=== PATIENT | male | born 1955 | race Caucasian/White ===

== ENCOUNTER 2017-08-23 08:00 | Outpatient (CLI) | payer OTHER ==
[2017-08-23 18:24] LABS: BASOPHILS % (AUTO) 0.7 %; EOSINOPHILS # (AUTO) 0.2 10^3/uL (0.0-0.7); EOSINOPHILS % (AUTO) 3.2 %; HGB - HEMOGLOBIN 14.9 g/dL (14.0-18.0); LYMPHOCYTES # (AUTO) 1.7 10^3/uL (1.5-3.5); LYMPHOCYTES % (AUTO) 30.5 %; MEAN CORPUSCULAR HEMOGLOBIN 29.9 pg (27.0-31.0); MEAN CORPUSCULAR HGB CONC 32.8 g/dL (32.0-36.0); MEAN CORPUSCULAR VOLUME 91.1 fL (80.0-94.0); MEAN PLATELET VOLUME 7.9 fL (7.4-11.4); MONOCYTES # (AUTO) 0.4 10^3/uL (0.0-1.0); MONOCYTES % (AUTO) 7.9 %; NEUTROPHILS # (AUTO) 3.2 10^3/uL (1.5-6.6); NEUTROPHILS % (AUTO) 57.7 %; PLT - PLATELET COUNT 244 10^3/uL (130-450); RED BLOOD COUNT 4.99 10^6/uL (4.70-6.10); RED CELL DISTRIBUTION WIDTH 14.3 % (12.0-15.0); WHITE BLOOD COUNT 5.6 x10^3/uL (4.8-10.8)
[2017-08-23 19:02] LABS: ALBUMIN 3.6 g/dL (3.2-5.5); ALBUMIN/GLOBULIN RATIO 0.9 (1.0-2.2); BILIRUBIN,TOTAL 0.7 mg/dL (0.2-1.0); CALCIUM 9.6 mg/dL (8.5-10.3); CREATININE 1.1 mg/dL (0.6-1.2); TOTAL PROTEIN 7.6 g/dL (6.7-8.2)
[2017-08-24 13:02] LABS: ALPHA FETOPROTEIN TUMOR MARKER 4.5 ng/mL (<6.1)
[2017-08-25 14:37] LABS: HCV RNA QUANT RT PCR 20000000 IU/mL (NOT DETECTED)
[2017-08-27 03:03] LABS: HEPATITIS C VIRAL RNA GENOTYPE 3
== END 2017-08-23 08:01 | disposition home or self-care (01) ==
LOC: LAB.S 08:00
PROVIDERS: ATTEND Nurse Practitioner Family
DX: F10.20 Alcohol dependence, uncomplicated (principal); I10 Essential (primary) hypertension; B19.20 Unspecified viral hepatitis C without hepatic coma
CPT/HCPCS: 36415; 80053; 82105; 85025; 87522; 87902

== ENCOUNTER 2019-03-17 10:25 | Outpatient (CLI) | payer MEDICARE ==
[2019-03-17 10:52] LABS: BASOPHILS # (AUTO) 0.1 10^3/uL (0.0-0.1); BASOPHILS % (AUTO) 0.8 %; EOSINOPHILS # (AUTO) 0.2 10^3/uL (0.0-0.7); EOSINOPHILS % (AUTO) 2.3 %; HGB - HEMOGLOBIN 14.6 g/dL (14.0-18.0); LYMPHOCYTES # (AUTO) 2.8 10^3/uL (1.5-3.5); LYMPHOCYTES % (AUTO) 38.1 %; MEAN CORPUSCULAR HGB CONC 33.6 g/dL (32.0-36.0); MEAN CORPUSCULAR VOLUME 89.5 fL (80.0-94.0); MEAN PLATELET VOLUME 9.1 fL (7.4-11.4); MONOCYTES # (AUTO) 0.6 10^3/uL (0.0-1.0); MONOCYTES % (AUTO) 8.1 %; NEUTROPHILS # (AUTO) 3.7 10^3/uL (1.5-6.6); NEUTROPHILS % (AUTO) 50.4 %; PLT - PLATELET COUNT 312 10^3/uL (130-450); RED BLOOD COUNT 4.86 10^6/uL (4.70-6.10); RED CELL DISTRIBUTION WIDTH 13.3 % (12.0-15.0); WHITE BLOOD COUNT 7.3 x10^3/uL (4.8-10.8)
[2019-03-17 11:11] LABS: ALBUMIN 4.3 g/dL (3.2-5.5); ALBUMIN/GLOBULIN RATIO 1.1 (1.0-2.2); ALKALINE PHOSPHATASE 37 IU/L (42-121); ALT ALANINE AMINOTRANSFERASE 33 IU/L (10-60); AST ASPARTATE AMINOTRANSFERASE 30 IU/L (10-42); BILIRUBIN,TOTAL 0.6 mg/dL (0.2-1.0); BUN - BLOOD UREA NITROGEN 32 mg/dL (6-20); CALCIUM 9.4 mg/dL (8.5-10.3); CARBON DIOXIDE - CO2 28 mmol/L (21-32); CHLORIDE 99 mmol/L (101-111); CHOL/HDL RATIO 3.7 (<5.0); CHOLESTEROL 170 mg/dL; CREATININE 1.9 mg/dL (0.6-1.2); GFR - MDRD 36 (>89); GLUCOSE 99 mg/dL (70-100); HDL CHOLESTEROL 46 mg/dL; LDL CHOLESTEROL,CALCULATED 96 mg/dL; LDL/HDL RATIO 2.1 (<3.6); SODIUM 135 mmol/L (135-145); TOTAL PROTEIN 8.3 g/dL (6.7-8.2); VLDL CHOLESTEROL 28 mg/dL
== END 2019-03-17 10:26 | disposition home or self-care (01) ==
LOC: LAB 10:25
PROVIDERS: ATTEND Nurse Practitioner
DX: I73.9 Peripheral vascular disease, unspecified (principal); Z79.899 Other long term (current) drug therapy; I10 Essential (primary) hypertension; I25.10 Atherosclerotic heart disease of native coronary artery without angina pectoris; J45.909 Unspecified asthma, uncomplicated; B19.20 Unspecified viral hepatitis C without hepatic coma
CPT/HCPCS: 36415; 80053; 80061; 82105; 83721; 84443; 85025; 87522

== ENCOUNTER 2019-03-17 14:31 | Outpatient (CLI) | payer MEDICARE ==
--- NOTE | 2019-03-17 21:50 | Ultrasound Report ---
Reason: CLAUDICATION,INTERMITTENT Procedure Date: 03/17/2019 Accession Number: [id number] / [id number] Procedure: US - Duplex Ext Veins Bilateral CPT Code: Final Report FULL RESULT: EXAM: BILATERAL LOWER EXTREMITY VENOUS ULTRASOUND EXAM DATE: 03/17/2019 07:20 PM. CLINICAL HISTORY: Claudication, intermittent. Leg pain bilaterally. COMPARISON: None. TECHNIQUE: Real-time sonographic vascular imaging was performed by the frame feeder through the lower extremities utilizing both color-flow and Doppler spectral analysis. Multiple advertising sales representative static images were saved for review. FINDINGS: Right: Common Femoral Vein (CFV): Normal. CFV-GSV Junction: Normal. Profunda Femoral Vein (PFV): Normal. Femoral Vein (FV) Prox: Normal. Femoral Vein (FV) Mid: Normal. Femoral Vein (FV) Dist: Normal. Popliteal Vein: Normal. Posterior Tibial Veins: Normal. Peroneal Veins: Normal. Left: Common Femoral Vein (CFV): Normal. CFV-GSV Junction: Normal. Profunda Femoral Vein (PFV): Normal. Femoral Vein (FV) Prox: Normal. Femoral Vein (FV) Mid: Normal. Femoral Vein (FV) Dist: Normal. Popliteal Vein: Normal. Posterior Tibial Veins: Normal. Peroneal Veins: Normal. Other: None. IMPRESSION: No evidence for deep venous thrombosis bilaterally. RADIA
--- NOTE | 2019-03-18 11:59 | Ultrasound Report ---
Reason: CLAUDICATION,INTERMITTENT Procedure Date: 03/17/2019 Accession Number: [id number] / [id number] Procedure: US - Duplex Lwr Ext Arterial Bilat CPT Code: Addended Final Report FULL RESULT: EXAM: Bilateral Lower Extremity Arterial Doppler Ultrasound EXAM DATE: 03/17/2019 08:19 PM. CLINICAL HISTORY: Claudication, intermittent. History of coronary arterial disease with 3 prior myocardial infarctions. COMPARISON: None. TECHNIQUE: Real-time sonographic vascular imaging was performed by the costume seamstress, utilizing color-flow, Doppler flow, and spectral analysis. Multiple patient service representative static images were saved for review. FINDINGS: Prominent scattered atherosclerotic plaque with distal shadowing involving the right and left lower extremity arteries. Spectral Doppler imaging of the proximal and mid left SFA demonstrates monophasic waveforms with peak systolic velocity of approximately 5 cm/s. Right Lower Extremity: SENIOR LEAD JAVA DEVELOPER: PSV 67 cm/sec, monophasic waveform. PSFA: PSV 58 cm/sec, monophasic waveform. MSFA: PSV 72 cm/sec, monophasic waveform. DSFA: PSV 26 cm/sec, monophasic waveform. PFA: PSV 70 cm/sec, monophasic waveform. POP: PSV 22 cm/sec, monophasic waveform. DAYANNA: PSV 21 cm/sec, monophasic waveform. EXTRUSION UTILITY WORKER: PSV 11 cm/sec, monophasic waveform. CAMILO: PSV 9 cm/sec, monophasic waveform. DPA: PSV 16 cm/sec, monophasic waveform. Left Lower Extremity: SENIOR LEAD JAVA DEVELOPER: PSV 52 cm/sec, monophasic waveform. PSFA: Stenosed. MSFA: Stenosed. DSFA: Stenosed. PFA: PSV 87 cm/sec, monophasic waveform. POP: PSV 19 cm/sec, monophasic waveform. DAYANNA: PSV 28 cm/sec, monophasic waveform. EXTRUSION UTILITY WORKER: PSV 13 cm/sec, monophasic waveform. CAMILO: PSV 6 cm/sec, monophasic waveform. DPA: PSV 4 cm/sec, monophasic waveform. IMPRESSION: 1. High-grade stenosis proximal and mid left superficial femoral artery. Consider CT angiography to further assess. 2. No hemodynamically significant arterial stenosis within the right lower extremity. 3. Prominent atherosclerotic arterial calcifications. RAD[facility] The call report notification system was initiated by Dr. Josh Umaña at 11:52 AM on 03/18/2019. ADDENDUM: 03/18/19 12:22 The above call report findings were discussed with Diana Norton PA-C by Dr. Josh Umaña at 12:22 PM on 03/18/2019. Consider CTA abdominal aorta with bilateral lower extremity runoff to further assess left SFA stenosis and exclude more proximal stenosis.
== END 2019-03-17 14:32 | disposition home or self-care (01) ==
LOC: DI 14:31
PROVIDERS: ATTEND Nurse Practitioner
DX: I73.9 Peripheral vascular disease, unspecified (principal); I25.10 Atherosclerotic heart disease of native coronary artery without angina pectoris; I10 Essential (primary) hypertension; J45.909 Unspecified asthma, uncomplicated; B19.20 Unspecified viral hepatitis C without hepatic coma; Z79.899 Other long term (current) drug therapy
CPT/HCPCS: 36415; 80053; 80061; 82105; 84443; 85025; 87522; 93925; 93970

== ENCOUNTER 2019-03-27 09:44 | Outpatient (CLI) | payer MEDICARE ==
[2019-03-27] MEDS ORDERED: IOVERSOL 320 100 ML VIAL IVP ONE ×2 (10:21→13:16)
--- NOTE | 2019-03-27 15:31 | CT Report ---
Reason: PVD WITH CLAUDICATION Procedure Date: 03/27/2019 Accession Number: [id number] / [id number] Procedure: CT - ANGIO LOWER EXT W/WO - B/L CPT Code: Final Report FULL RESULT: EXAM: CT ANGIOGRAM ABDOMEN AND PELVIS, WITH BILATERAL LOWER EXTREMITY ARTERY RUNOFF EXAM DATE: 03/27/2019 11:24 AM CLINICAL HISTORY: PVD with claudication. COMPARISON: None. TECHNIQUE: Routine helical imaging was performed through the abdomen, pelvis and bilateral lower extremities in arterial phase. IV Contrast: OPTI 320 125ML. Reconstructions: Coronal, sagittal, and 3D MIP reconstructions were performed. In accordance with CT protocol optimization, one or more of the following dose reduction techniques were utilized for this exam: automated exposure control, adjustment of mA and/or KV based on patient size, or use of iterative reconstructive technique. FINDINGS: Vascular: There is severe atherosclerotic disease with both soft and calcific plaque throughout the visualized abdomen, pelvis, and lower extremities. The celiac axis remains patent with conventional branching anatomy. The SMA demonstrates approximately 50% proximal stenosis with poststenotic dilation but remains patent. The inferior mesenteric artery remains patent. The duplicated right renal arteries are patent with expected nephrogram. The left kidney demonstrates heterogeneous partial nephrogram due to ostial stenosis of the single left renal artery which demonstrates early branching and occlusion of several main branches. The aorta itself is not aneurysmal but demonstrates circumferential atherosclerotic disease, combination of hard and soft plaque. The right common iliac artery demonstrates severe stenosis of greater than 75% with a combination of soft and calcific atherosclerosis. The right external iliac artery demonstrates approximately 2.9 cm segmental stenosis proximally, approximately 75% stenosis. There is focal approximately 80% stenosis at the origin of the right profunda femoris which remains patent. The right SFA is diffusely atherosclerotic with focal approximately 70-80% stenosis distally at the level of the canal, calcific and hypoechoic eccentric stenosis. The origins of the anterior and posterior tibial arteries as well as peroneal artery of the below the knee right lower extremity remain patent with diffuse atherosclerotic disease. The contrast bolus is lost usp through the calf, potentially due to above inflow disease. The left common iliac arteries circumferentially severely atherosclerotic with diffuse approximately 50% stenosis throughout its length which culminates in severe stenosis of the proximal left internal iliac artery which remains otherwise patent and represents the major collateral pathway reconstituting the left profunda femoris which reconstitutes the SFA distally above the knee. The left external iliac artery is chronically occluded. The left common femoral artery while near occluded receives a small amount of minor collateral flow with approximately 10% of the lumen residually opacified, potential recanalization access site. The proximal and mid SFA are totally occluded with reconstitution just above the knee. The diffusely diseased anterior and posterior tibial arteries and peroneal artery are well visualized to the level of the midcalf where the contrast bolus is lost. Inferior vena cava unremarkable as seen. Abdomen: Lung bases, abdominal solid organs, bowel unremarkable for arterial phase enhancement excepting the left kidney mentioned above which is not adequately perfused. Abdominal contents otherwise normal. Pelvis: Pelvic organs, bowel, and bladder unremarkable for arterial phase enhancement. Pelvic contents otherwise normal. Extremities: Lower extremity bones and soft tissues unremarkable. IMPRESSION: 1. Severe abdominal pelvic visceral atherosclerotic disease affecting perfusion of the left kidney with delayed nephrogram. 2. Severe focal stenosis of the right common iliac artery, right inflow disease which is further exacerbated by segmental approximately 75% stenosis of the right external iliac artery. 3. Total occlusion of the left external iliac artery with perfusion to the left lower extremity via gluteal collateral vasculature, profunda femoris with reconstitution just above the knee. The call report notification system was initiated by Dr. Aden Lopez at 03:19 PM on 03/27/2019. The above call report findings were discussed with Donna Gutiérrez by Dr. Aden Lopez at 03:22 PM on 03/27/2019.
== END 2019-03-27 09:45 | disposition home or self-care (01) ==
LOC: DI 09:44
PROVIDERS: ATTEND Nurse Practitioner
DX: I73.9 Peripheral vascular disease, unspecified (principal); I70.0 Atherosclerosis of aorta; I70.8 Atherosclerosis of other arteries; I74.5 Embolism and thrombosis of iliac artery
CPT/HCPCS: 73706

== ENCOUNTER 2019-03-27 09:46 | Outpatient (CLI) | payer MEDICARE ==
[2019-03-28] MEDS ORDERED: REGADENOSON 0.4 MG/5 ML SYRINGE IVP ONE (13:00)
--- NOTE | 2019-03-28 17:02 | Nuclear Medicine Report ---
Reason: CAD Procedure Date: 03/28/2019 Accession Number: [id number] / [id number] Procedure: NM - Myocardial Perfusion STR/RST CPT Code: Final Report FULL RESULT: EXAM: SINGLE-ISOTOPE PHARMACOLOGICAL STRESS TEST WITH REGADENOSON. SINGLE-ISOTOPE AND TWO-DAY REST/STRESS MYOCARDIAL PERFUSION SCANS WITH TOMOGRAPHIC IMAGING, QUANTITATIVE ANALYSIS, WALL MOTION ANALYSIS AND CALCULATION OF EJECTION FRACTION. EXAM DATE: 03/28/2019 03:05 PM. CLINICAL HISTORY: Coronary artery disease. COMPARISON: None available. TECHNIQUE: A pharmacological stress was performed with the infusion of 0.4 mg regadenoson per protocol. According to protocol, 10.4 mCi of Tc-99m sestamibi was injected for stress myocardial perfusion scan. Motion correction was applied when appropriate. The following day after the intravenous administration of 26.2 mCi of Tc-99m sestamibi, a rest myocardial perfusion scan was done with tomography. Motion correction was applied when appropriate. Gated tomographic images were obtained for wall motion analysis and computation of left ventricular ejection fraction. FINDINGS: Images show a moderate severity fixed defect involving the apex and distal inferior and inferoseptal miller. No convincing significant reversible defects. Summed stress score 10 Summed rest score 8 Summed difference score 2 Wall motion analysis demonstrates septal hypokinesis. The left ventricular end-diastolic volume is 48 cc. The left ventricular end-systolic volume is 11 cc. The left ventricular ejection fraction is calculated to be 78%. IMPRESSION: 1. Moderate severity fixed defect involving the apex and distal inferior and inferoseptal miller. No convincing significant reversible perfusion defects on visual analysis. 2. Left ventricular ejection fraction of 78%. 3. Septal hypokinesis. 4. Normal left ventricular cavity size, no change with stress. Please correlate findings with stress ECG tracings and procedure notes. RADIA
--- NOTE | 2019-03-29 08:58 | CARDIAC PROCEDURE NOTE ---
DATE OF SERVICE: 03/28/2019 Physician: Lor Low MD, LOCATED WITHIN [facility] INDICATION 1. CAD. 2. Chest pain. 3. Abnormal EKG. CARDIAC RISK FACTORS 1. Hypertension. 2. Smoking history. 3. Male gender. 4. Advanced age. 5. The patient has known CAD and describes "3 prior MIs." DESCRIPTION OF PROCEDURE: After signing informed consent, patient underwent a Lexiscan pharmaceutical stress test with nuclear myocardial perfusion imaging. (The resting image was done the day before and the pharmaceutical stress portion plus imaging, needed to be postponed because he drank coffee yesterday and caffeine is a natural antidote to Lexiscan). RESTING HEART RATE: 78. PEAK HEART RATE: 110. RESTING BLOOD PRESSURE: 171/112. PEAK BLOOD PRESSURE: 210/99. Lexiscan was infused per protocol. Patient developed brief flushing and nausea and had mild shortness of breath. The symptoms abated after 3 minutes. Patient was given p.o. caffeine for reversal of any further symptoms. He had no chest pain throughout the test. Oxygen saturation was 95-98% on room air throughout the test. RESTING EKG: Normal sinus rhythm, rate 77, left atrial enlargement and right atrial enlargement, QS waves are present in V1 and V2, horizontal ST depressions of 2 mm with biphasic T waves are present in leads II, III, and aVF, as well as V3 through V6. EKG AT [facility]: Unchanged ST and T-wave abnormalities in same diffuse leads. IMPRESSION AND DIAGNOSES 1. Abnormal resting EKG. 2. No chest pain develops with pharmaceutical stress agent. 3. No new EKG changes develop with pharmaceutical stress. 4. Nuclear images reported separately. cc: DIVYA Lyn NP-C TD: 03/28/2019 18:22 [place]
== END 2019-03-27 09:47 | disposition home or self-care (01) ==
LOC: DI 09:46
PROVIDERS: ATTEND Nurse Practitioner
DX: I25.119 Atherosclerotic heart disease of native coronary artery with unspecified angina pectoris (principal); I10 Essential (primary) hypertension; J45.909 Unspecified asthma, uncomplicated; I25.2 Old myocardial infarction; R94.31 Abnormal electrocardiogram [ECG] [EKG]; Z87.891 Personal history of nicotine dependence
CPT/HCPCS: 78452; 93017

== ENCOUNTER 2019-03-27 11:19 | Emergency (ER) | payer MEDICARE ==
[2019-03-27 11:45] LABS: BASOPHILS % (AUTO) 0.5 %; EOSINOPHILS # (AUTO) 0.1 10^3/uL (0.0-0.7); EOSINOPHILS % (AUTO) 0.7 %; HGB - HEMOGLOBIN 14.4 g/dL (14.0-18.0); LYMPHOCYTES # (AUTO) 2.1 10^3/uL (1.5-3.5); LYMPHOCYTES % (AUTO) 28.4 %; MEAN CORPUSCULAR HEMOGLOBIN 29.5 pg (27.0-31.0); MEAN CORPUSCULAR HGB CONC 32.7 g/dL (32.0-36.0); MEAN CORPUSCULAR VOLUME 90.2 fL (80.0-94.0); MEAN PLATELET VOLUME 9.3 fL (7.4-11.4); MONOCYTES # (AUTO) 0.6 10^3/uL (0.0-1.0); MONOCYTES % (AUTO) 8.2 %; NEUTROPHILS # (AUTO) 4.7 10^3/uL (1.5-6.6); NEUTROPHILS % (AUTO) 61.9 %; PLT - PLATELET COUNT 239 10^3/uL (130-450); RED BLOOD COUNT 4.88 10^6/uL (4.70-6.10); RED CELL DISTRIBUTION WIDTH 13.3 % (12.0-15.0); WHITE BLOOD COUNT 7.5 x10^3/uL (4.8-10.8)
[2019-03-27 12:00] LABS: ALBUMIN 3.9 g/dL (3.2-5.5); ALBUMIN/GLOBULIN RATIO 1.1 (1.0-2.2); CALCIUM 9.1 mg/dL (8.5-10.3); CREATININE 1.5 mg/dL (0.6-1.2); TOTAL PROTEIN 7.4 g/dL (6.7-8.2)
--- NOTE | 2019-03-27 12:01 | XRAY Report ---
Reason: Chest Pain Procedure Date: 03/27/2019 Accession Number: [id number] / [id number] Procedure: XR - Chest 1 View X-Ray CPT Code: 94574 Final Report FULL RESULT: EXAM: CHEST RADIOGRAPHY EXAM DATE: 03/27/2019 11:31 AM. CLINICAL HISTORY: Chest Pain. COMPARISON: None. TECHNIQUE: 1 view. FINDINGS: Lungs/Pleura: No focal opacities evident. No pleural effusion. No pneumothorax. Mediastinum: Within exam limitations, the cardiomediastinal contour is normal. Other: None. IMPRESSION: No evidence for acute cardiopulmonary process. RADIA
[2019-03-27] MEDS ORDERED: SODIUM CHLORIDE 0.9% 1,000 ML IV ONE (12:05)
--- NOTE | 2019-03-27 12:24 | ED Physician Documentation ---
History of Present Illness - Stated complaint Stated Complaint: ABNORMAL EKG - Chief complaint Chief Complaint: General - History obtained from History obtained from: Patient - History of Present Illness Timing: Today Pain level max: 0 Pain level now: 0 - Additonal information Additional information: 64-year-old male presents to the emergency department after being referred by his primary care provider for an abnormal resting EKG. He states he has had 3 heart attacks in the past. He is currently asymptomatic. Has not had any chest pain, shortness of breath. No nausea or vomiting. He is scheduled for cardiac stress test this afternoon. His heart attacks were in [place]. Does not have a fly rail operator here yet. Review of Systems Ten Systems: 10 systems reviewed and negative Constitutional: denies: Fever, Chills Nose: denies: Rhinorrhea / runny nose, Congestion GI: denies: Vomiting, Diarrhea Skin: denies: Rash Musculoskeletal: denies: Neck pain, Back pain Neurologic: denies: Headache PD PAST MEDICAL HISTORY - Past Medical History Past Medical History: Yes Cardiovascular: Hypertension, Coronary artery disease - Allergies Allergies/Adverse Reactions: Allergies Allergy/AdvReac Type Severity Reaction Status Date / Time codeine Allergy Itching Verified 03/27/19 11:24 - Living Situation Living Arrangement: reports: At home - Social History Does the pt smoke?: Yes Does the pt have substance abuse?: No - Family History Family history: reports: Non contributory PD ED PE NORMAL - Vitals Vital signs reviewed: Yes - General General: Alert and oriented X 3, No acute distress, Other (Thin male) - HEENT HEENT: Moist mucous membranes - Neck Neck: Supple, no meningeal sign - Cardiac Cardiac: RRR, No murmur, Strong equal pulses - Respiratory Respiratory: No respiratory distress, Clear bilaterally - Abdomen Abdomen: Soft, Non tender, Non distended - Derm Derm: Warm and dry, No rash - Extremities Extremities: No edema - Neuro Neuro: Alert and oriented X 3 - Psych Psych: Normal mood, Normal affect Results - Vitals Vitals: Vital Signs - 24 hr 03/27/19 03/27/19 11:24 12:30 Temperature 36.9 C Heart Rate 77 69 Respiratory 18 15 Rate Blood Pressure 175/88 H 167/77 H O2 Saturation 97 97 Oxygen O2 Source Room air - EKG (time done) 1134 Rate: Rate (enter#) (68) Rhythm: NSR [place]: Normal Intervals: Normal GA QRS: Normal Ischemia: Normal ST segments, ST depression (minimal ST depression II, III, aVF) - Labs Labs: Laboratory Tests 03/27/19 03/27/19 03/27/19 11:42 11:42 11:42 WBC 7.5 RBC 4.88 Hgb 14.4 Hct 44.0 MCV 90.2 MCH 29.5 MCHC 32.7 RDW 13.3 Plt Count 239 MPV 9.3 Neut # (Auto) 4.7 Lymph # (Auto) 2.1 Weber # (Auto) 0.6 Eos # (Auto) 0.1 Baso # (Auto) 0.0 Absolute Nucleated RBC 0.00 Nucleated RBC % 0.0 Sodium 129 L Potassium 4.6 Chloride 91 L Carbon Dioxide 24 Anion Gap 14.0 H BUN 26 H Creatinine 1.5 H Estimated GFR (MDRD) 47 L Glucose 91 Calcium 9.1 Total Bilirubin 1.0 AST 35 ALT 29 Alkaline Phosphatase 38 L Troponin I High Sens 3.6 Total Protein 7.4 Albumin 3.9 Globulin 3.5 Albumin/Globulin Ratio 1.1 Lipase 43 - Rads (name of study) cxr Radiology: Prelim report reviewed, EMP read contemporaneously, See rad report (No acute disease) PD MEDICAL DECISION MAKING - ED course Complexity details: reviewed results, re-evaluated patient, considered differential (No ST elevation [place], no aortic dissection, no PE, no tension pneumothorax, no aortic aneurysm), d/w patient ED course: Patient with an asymptomatic slightly abnormal resting EKG today with his doctor. He is asymptomatic here. Minimal ST depression. No evidence of acute ischemia. Negative high-sensitivity troponin. We will discharge him to his cardiac stress test. Patient counseled regarding signs and symptoms for which I believe and urgent re-evaluation would be necessary. Patient with good understanding of and agreement to plan and is comfortable going home at this time This document was made in part using voice recognition software. While efforts are made to proofread this document, sound alike and grammatical errors may occur. Departure - Departure Disposition: 01 Home, Self Care Clinical Impression: Abnormal resting ECG findings Condition: Good Instructions: ED Screening Exam Medical Nonurgent Follow-Up: Donna Gutiérrez ARNP, TUB MENDER-C [Primary Care Provider] - Within 1 week Comments: You are to go directly to your cardiac stress test after being discharged from the emergency department. Return if you worsen. Follow-up with your doctor for further care. Discharge Date/Time: 03/27/19 13:01
[2019-03-27 12:33] VITALS: BP 167/77
== END 2019-03-27 13:01 | disposition home or self-care (01) ==
LOC: ED 11:19
DX: R94.31 Abnormal electrocardiogram [ECG] [EKG] (principal); I10 Essential (primary) hypertension; I25.2 Old myocardial infarction; I25.119 Atherosclerotic heart disease of native coronary artery with unspecified angina pectoris; J45.909 Unspecified asthma, uncomplicated; I73.9 Peripheral vascular disease, unspecified; I70.0 Atherosclerosis of aorta; I70.8 Atherosclerosis of other arteries; I74.5 Embolism and thrombosis of iliac artery; Z87.891 Personal history of nicotine dependence
CPT/HCPCS: 36415; 71045; 73706; 78452; 80053; 83690; 84484; 85025; 93005; 93017; A9500; Q9967; 99283; 99284

== ENCOUNTER 2019-11-21 13:36 | Outpatient (CLI) | payer MEDICARE | END 2019-11-21 13:37 | disposition critical access hospital (66) | LOC: EMS 13:36 | PROVIDERS: ATTEND Surgery | DX: R53.1 Weakness (principal); R42 Dizziness and giddiness; R55 Syncope and collapse | CPT/HCPCS: A0425; A0427 ==

== ENCOUNTER 2019-11-21 13:43 | Emergency (ER) | payer MEDICARE ==
[2019-11-21 14:25] LABS: BASOPHILS % (AUTO) 0.6 %; EOSINOPHILS # (AUTO) 0.1 10^3/uL (0.0-0.7); EOSINOPHILS % (AUTO) 2.1 %; HGB - HEMOGLOBIN 9.9 g/dL (14.0-18.0); LYMPHOCYTES # (AUTO) 2.3 10^3/uL (1.5-3.5); LYMPHOCYTES % (AUTO) 34.2 %; MEAN CORPUSCULAR HEMOGLOBIN 29.7 pg (27.0-31.0); MEAN CORPUSCULAR HGB CONC 32.4 g/dL (32.0-36.0); MEAN CORPUSCULAR VOLUME 91.9 fL (80.0-94.0); MEAN PLATELET VOLUME 9.1 fL (7.4-11.4); MONOCYTES # (AUTO) 0.6 10^3/uL (0.0-1.0); MONOCYTES % (AUTO) 8.5 %; NEUTROPHILS # (AUTO) 3.7 10^3/uL (1.5-6.6); NEUTROPHILS % (AUTO) 54.3 %; PLT - PLATELET COUNT 306 10^3/uL (130-450); RED BLOOD COUNT 3.33 10^6/uL (4.70-6.10); RED CELL DISTRIBUTION WIDTH 14.8 % (12.0-15.0); WHITE BLOOD COUNT 6.8 x10^3/uL (4.8-10.8)
--- NOTE | 2019-11-21 14:29 | XRAY Report ---
PROCEDURE: Chest 1 View X-Ray INDICATIONS: Chest Pain TECHNIQUE: One view of the chest was acquired. COMPARISON: 03/27/2019 FINDINGS: Surgical changes and devices: None. Lungs and pleura: No pleural effusions or pneumothorax. Stable appearance of minimal blunting of the left costophrenic angle likely related to pleural thickening or scarring. Lungs are otherwise clear. Mediastinum: Mediastinal contours appear normal. Heart size is normal. Bones and chest wall: No suspicious bony lesions. Overlying soft tissues appear unremarkable. IMPRESSION: Stable examination of the chest without acute cardiopulmonary abnormalities. No abnormalities identif ied to explain patient's chest pain. Reviewed by: Smith Orta MD on 11/21/2019 2:27 PM PDT Approved by: Smith Orta MD on 11/21/2019 2:27 PM PDT Station ID: [id number]
[2019-11-21 14:38] LABS: ALBUMIN 3.5 g/dL (3.2-5.5); ALBUMIN/GLOBULIN RATIO 0.9 (1.0-2.2); BILIRUBIN,TOTAL 0.4 mg/dL (0.2-1.0); CALCIUM 8.8 mg/dL (8.5-10.3); CREATININE 1.4 mg/dL (0.6-1.2); TOTAL PROTEIN 7.2 g/dL (6.7-8.2)
--- NOTE | 2019-11-21 14:38 | ED Physician Documentation ---
History of Present Illness - Stated complaint Stated Complaint: NEAR SYNCOPE - Chief complaint Chief Complaint: Neuro - History obtained from History obtained from: Patient, EMS - History of Present Illness Timing: Prior to arrival - Additonal information Additional information: 64-year-old male brought into the emergency department for evaluation of near syncope noted by his home health care care nurse this afternoon. The EMS report indicates the patient had near syncope but did not faint. On scene he was normotensive and his blood sugar was 111. Patient states that he does not remember if he fainted or not. At this time patient denies that he has any chest pain, vertigo, dizziness, dyspnea, or leg swelling.` He denies abdominal pain, back pain nausea vomiting diarrhea or dysuria This gentleman has a cardiac history that includes recent stenting at [facility]. He also recently underwent vascular intervention for acute arterial occlusion in his lower legs. He had that intervention of July 2019. He reports he saw vascular in follow-up and was told that he has 50% occlusion to the left leg and 60% occlusion to the right leg however he denies any leg pain or swelling at present pmh: htn, cad, copd soc: + daily tobacco meds: Amlodipine 10 mg qd asa 81 mg qd lipitor 80 mg qd metoprolol 25 mg bid ticagprelor 90 mg bid nitro prn ipratropium QD Review of Systems Constitutional: denies: Fever, Chills Eyes: denies: Loss of vision, Decreased vision Ears: denies: Loss of hearing, Tinnitus/ringing Nose: denies: Rhinorrhea / runny nose, Congestion, Epistaxis, Sinus pressure / pain Throat: denies: Dental pain / toothache, Oral lesions / sores, Sore throat Cardiac: denies: Chest pain / pressure, Palpitations, Pedal edema, Calf pain Respiratory: denies: Dyspnea, Cough, Hemoptysis, Wheezing GI: denies: Abdominal Pain, Abdominal Swelling, Nausea, Vomiting : denies: Dysuria, Frequency, Hesitancy, Unable to Void Skin: denies: Rash, Lesions Musculoskeletal: denies: Neck pain, Back pain, Joint pain, Extremity swelling, Joint swelling Neurologic: reports: Near syncope. denies: Generalized weakness, Focal weakness, Numbness, Difficulty speaking, Syncope, Seizure, Confused, Altered mental status, Headache, Head injury Psychiatric: denies: Depressed, Suicidal, Hallucinations, Delusions PD PAST MEDICAL HISTORY - Past Medical History Cardiovascular: Hypertension, Coronary artery disease - Past Surgical History Past Surgical History: No - Allergies Allergies/Adverse Reactions: Allergies Allergy/AdvReac Type Severity Reaction Status Date / Time codeine Allergy Itching Verified 11/21/19 13:51 - Social History Does the pt smoke?: Yes Smoking Status: Current every day smoker Does the pt drink ETOH?: No Does the pt have substance abuse?: No - Immunizations Immunizations: TDAP >10years/unknown PD ED PE EXPANDED - General General: Alert, No acute distress, Well developed/nourished - HEENT HEENT: PERRL - Neck Neck: Supple w/out meningeal sx. No: Adenopathy - Cardiac Cardiac: Regular Rate, Murmur Present, Femoral strong equal, Pedal strong equal, Cap refill < 2 sec. No: Abnormal Rate - Respiratory Respiratory: Clear to ausultation wilner. No: Distress, Labored - Abdomen Abdomen: Normal Bowel sounds. No: Tender to palpation - Extremities Extremities: Normal, Other (Edema of the lower legs. 2+ PEDAL PULSES BILATERALLY) - Neuro Neuro: Alert and Oriented X 3, CNII-XII intact, Normal gait, Normal finger nose, Normal speech - GCS Eye Opening: Spontaneous Motor: Obeys Commands Verbal: Oriented Total: 15 Results - Vitals Vitals: Vital Signs - 24 hr 11/21/19 11/21/19 11/21/19 13:43 14:45 15:02 Temperature 36.4 C L Heart Rate 84 80 Heart Rate [ 83 Sitting] Heart Rate [ 91 Standing] Heart Rate [ 76 Supine] Respiratory 16 18 Rate Blood Pressure 138/73 H 123/75 Blood Pressure 116/74 [Sitting] Blood Pressure 86/74 L [Standing] Blood Pressure 117/69 [Supine] O2 Saturation 99 100 11/21/19 16:37 Temperature Heart Rate Heart Rate [ 90 Sitting] Heart Rate [ 93 Standing] Heart Rate [ 89 Supine] Respiratory Rate Blood Pressure Blood Pressure 114/77 [Sitting] Blood Pressure 109/69 [Standing] Blood Pressure 127/91 H [Supine] O2 Saturation Oxygen O2 Source Room air - EKG (time done) 1406 Rate: Rate (enter#) (76) Rhythm: NSR [place]: Normal Intervals: Normal [place] QRS: Normal Ischemia: Normal ST segments, Non specific changes Compare to prior EKG: Changed from prior EKG (new change V1-V2), Old EKG unavailable - Labs Labs: Laboratory Tests 11/21/19 11/21/19 11/21/19 14:18 14:18 14:18 WBC 6.8 RBC 3.33 L Hgb 9.9 L Hct 30.6 L MCV 91.9 MCH 29.7 MCHC 32.4 RDW 14.8 Plt Count 306 MPV 9.1 Neut # (Auto) 3.7 Lymph # (Auto) 2.3 [place] # (Auto) 0.6 Eos # (Auto) 0.1 Baso # (Auto) 0.0 Absolute Nucleated RBC 0.00 Nucleated RBC % 0.0 Sodium 135 Potassium 3.8 Chloride 101 Carbon Dioxide 21 Anion Gap 13.0 BUN 24 H Creatinine 1.4 H Estimated GFR (MDRD) 51 L Glucose 93 Calcium 8.8 Total Bilirubin 0.4 AST 45 H ALT 32 Alkaline Phosphatase 41 L Troponin I High Sens 7.2 Total Protein 7.2 Albumin 3.5 Globulin 3.7 Albumin/Globulin Ratio 0.9 L Lipase 68 H TSH 11/21/19 14:18 WBC RBC Hgb Hct MCV MCH MCHC RDW Plt Count MPV Neut # (Auto) Lymph # (Auto) [place] # (Auto) Eos # (Auto) Baso # (Auto) Absolute Nucleated RBC Nucleated RBC % Sodium Potassium Chloride Carbon Dioxide Anion Gap BUN Creatinine Estimated GFR (MDRD) Glucose Calcium Total Bilirubin AST ALT Alkaline Phosphatase Troponin I High Sens Total Protein Albumin Globulin Albumin/Globulin Ratio Lipase TSH 0.59 - Rads (name of study) cxr Radiology: Final report received (Stable examination of the chest without acute cardiopulmonary abnormalities.) PD MEDICAL DECISION MAKING - ED course Complexity details: reviewed old records, reviewed results, re-evaluated patient, considered differential, d/w patient ED course: 64-year-old male presents to the emergency department with a near syncopal event this afternoon when being attended by his home health nurse. He does have a history of significant coronary artery disease as well as recently being seen at [place] and having vascular intervention for ischemic flow to his legs. His EKG is sinus without ischemic changes. His high-sensitivity troponin is negative. We did do orthostatic blood pressures and noted that he went from a systolic blood pressure of about 116 laying and sitting to a systolic blood pressure of 86 when standing. We did challenge him with 1 L of IV fluids in the emergency department. Pitted and his blood pressure changed from 1 16-1 07 sitting to standing. He was given a second liter of IV fluids. At this time patient feels that he feels better he denies any dizziness and his gait has been stable and unassisted in the ER. I will recommend close follow-up with his primary care doctor. I suspect that he may have been mildly dehydrated as his presenting creatinine was 1.4. Emergent return precautions discussed Departure - Departure Disposition: Home, Self Care Clinical Impression: Near syncope, Postural dizziness Condition: Stable Record reviewed to determine appropriate education?: Yes Instructions: ED Near Syncope Vasovagal Follow-Up: Donna Gutiérrez ARNP, [employer] SET UP OPERATOR-C [Primary Care Provider] - Comments: Rest I think that the near fainting episode may have been a little bit of dehydration. Your vital signs have improved here in the emergency department with some IV fluids. Your EKG, chest x-ray and labs otherwise did not show any abnormalities with the exception of a little bit of anemia. I would like you to schedule very close follow-up with your primary care doctor for further evaluation. If you develop chest pain have any fainting episodes or feel that your symptoms have returned please return to the ER
[2019-11-21] MEDS ORDERED: SODIUM CHLORIDE 0.9% 1,000 ML IV STA ×2 (15:16→16:43)
[2019-11-21 18:00] VITALS: BP 130/86
== END 2019-11-21 17:58 | disposition home or self-care (01) ==
LOC: EDBD → EDUNIT# → ED 13:43
DX: R55 Syncope and collapse (principal); R42 Dizziness and giddiness; I10 Essential (primary) hypertension; I25.10 Atherosclerotic heart disease of native coronary artery without angina pectoris; J44.9 Chronic obstructive pulmonary disease, unspecified; Z79.82 Long term (current) use of aspirin; F17.200 Nicotine dependence, unspecified, uncomplicated
CPT/HCPCS: 36415; 71045; 80053; 83690; 84443; 84484; 85025; 93005; 96360; 96361; 99283

== ENCOUNTER 2020-09-18 09:54 | Outpatient (CLI) | payer MEDICARE ==
[2020-09-18 10:23] LABS: BASOPHILS # (AUTO) 0.1 10^3/uL (0.0-0.1); BASOPHILS % (AUTO) 0.6 %; EOSINOPHILS # (AUTO) 0.2 10^3/uL (0.0-0.7); EOSINOPHILS % (AUTO) 2.4 %; HCT - HEMATOCRIT 36.2 % (42.0-52.0); HGB - HEMOGLOBIN 11.1 g/dL (14.0-18.0); LYMPHOCYTES # (AUTO) 2.8 10^3/uL (1.5-3.5); LYMPHOCYTES % (AUTO) 35.4 %; MEAN CORPUSCULAR HEMOGLOBIN 24.4 pg (27.0-31.0); MEAN CORPUSCULAR HGB CONC 30.7 g/dL (32.0-36.0); MEAN CORPUSCULAR VOLUME 79.6 fL (80.0-94.0); MEAN PLATELET VOLUME 8.9 fL (7.4-11.4); MONOCYTES # (AUTO) 0.6 10^3/uL (0.0-1.0); NEUTROPHILS # (AUTO) 4.1 10^3/uL (1.5-6.6); NEUTROPHILS % (AUTO) 53.3 %; PLT - PLATELET COUNT 316 10^3/uL (130-450); RED BLOOD COUNT 4.55 10^6/uL (4.70-6.10); RED CELL DISTRIBUTION WIDTH 18.5 % (12.0-15.0); WHITE BLOOD COUNT 7.8 x10^3/uL (4.8-10.8)
[2020-09-18 10:44] LABS: ALKALINE PHOSPHATASE 41 IU/L (42-121); ALT ALANINE AMINOTRANSFERASE 16 IU/L (10-60); AST ASPARTATE AMINOTRANSFERASE 22 IU/L (10-42); BILIRUBIN,TOTAL 0.7 mg/dL (0.2-1.0); BUN - BLOOD UREA NITROGEN 26 mg/dL (6-20); CALCIUM 9.3 mg/dL (8.5-10.3); CARBON DIOXIDE - CO2 28 mmol/L (21-32); CHLORIDE 100 mmol/L (101-111); CHOLESTEROL 146 mg/dL; CREATININE 1.7 mg/dL (0.6-1.2); GFR - MDRD 41 (>89); GLUCOSE 111 mg/dL (70-100); HDL CHOLESTEROL 74 mg/dL; LDL CHOLESTEROL,CALCULATED 58 mg/dL; LDL/HDL RATIO 0.8 (<3.6); POTASSIUM 4.4 mmol/L (3.5-5.0); SODIUM 136 mmol/L (135-145); TRIGLYCERIDES 69 mg/dL; VLDL CHOLESTEROL 14 mg/dL
[2020-09-20 20:01] LABS: HCV RNA QUANT RT PCR 74000 IU/mL
== END 2020-09-18 09:55 | disposition home or self-care (01) ==
LOC: LAB 09:54
PROVIDERS: ATTEND Internal Medicine
DX: I10 Essential (primary) hypertension (principal); Z12.5 Encounter for screening for malignant neoplasm of prostate; B19.20 Unspecified viral hepatitis C without hepatic coma
CPT/HCPCS: 36415; 80053; 80061; 85025; 87522; G0103; 83721; 84153

== ENCOUNTER 2020-12-03 09:17 | Outpatient (CLI) | payer MEDICARE ==
[2020-12-03 09:45] LABS: BASOPHILS # (AUTO) 0.1 10^3/uL (0.0-0.1); BASOPHILS % (AUTO) 0.8 %; EOSINOPHILS # (AUTO) 0.1 10^3/uL (0.0-0.7); EOSINOPHILS % (AUTO) 1.4 %; HCT - HEMATOCRIT 41.6 % (42.0-52.0); HGB - HEMOGLOBIN 12.7 g/dL (14.0-18.0); LYMPHOCYTES # (AUTO) 1.8 10^3/uL (1.5-3.5); LYMPHOCYTES % (AUTO) 26.8 %; MEAN CORPUSCULAR HEMOGLOBIN 24.3 pg (27.0-31.0); MEAN CORPUSCULAR HGB CONC 30.5 g/dL (32.0-36.0); MEAN CORPUSCULAR VOLUME 79.5 fL (80.0-94.0); MEAN PLATELET VOLUME 9.2 fL (7.4-11.4); MONOCYTES # (AUTO) 0.7 10^3/uL (0.0-1.0); MONOCYTES % (AUTO) 10.5 %; NEUTROPHILS % (AUTO) 60.3 %; PLT - PLATELET COUNT 336 10^3/uL (130-450); RED BLOOD COUNT 5.23 10^6/uL (4.70-6.10); RED CELL DISTRIBUTION WIDTH 17.3 % (12.0-15.0); WHITE BLOOD COUNT 6.7 x10^3/uL (4.8-10.8)
[2020-12-03 09:55] LABS: GLUCOSE, URINE (UA) NEGATIVE (NEGATIVE); KETONES,URINE (UA) 15 mg/dL (NEGATIVE); LEUKOCYTE ESTERASE, URINE NEGATIVE (NEGATIVE); NITRITE,URINE NEGATIVE (NEGATIVE); OCCULT BLOOD,URINE TRACE-LYSE (NEGATIVE); PH,URINE 5.5 PH (5.0-7.5); PROTEIN,URINE TRACE mg/dL (NEGATIVE); UROBILINOGEN,URINE 0.2 (NORMAL) E.U./dL (NORMAL)
[2020-12-03 09:58] LABS: ALBUMIN 4.2 g/dL (3.2-5.5); BILIRUBIN,TOTAL 0.8 mg/dL (0.2-1.0); CALCIUM 9.9 mg/dL (8.5-10.3); CREATININE 1.5 mg/dL (0.6-1.2); POTASSIUM 4.6 mmol/L (3.5-5.0); TOTAL PROTEIN 8.4 g/dL (6.7-8.2)
[2020-12-03 10:06] LABS: BILIRUBIN,URINE NEGATIVE (NEGATIVE); CLARITY,URINE CLEAR (CLEAR); ICTOTEST,URINE NEGATIVE
[2020-12-03 10:14] LABS: BACTERIA,URINE Rare /HPF (None Seen); RBC,URINE 0-5 /HPF (0-5); SQUAMOUS EPITHELIAL CELL,UR RARE Squamous (<= Few); WBC,URINE 0-3 /HPF (0-3)
== END 2020-12-03 09:18 | disposition home or self-care (01) ==
LOC: LAB 09:17
PROVIDERS: ATTEND Internal Medicine
DX: N18.9 Chronic kidney disease, unspecified (principal)
CPT/HCPCS: 36415; 80053; 81001; 85025; 87086

== ENCOUNTER 2020-12-17 09:01 | Outpatient (CLI) | payer MEDICARE | END 2020-12-17 09:02 | disposition home or self-care (01) | LOC: RT 09:01 | PROVIDERS: ATTEND Internal Medicine | DX: Z53.9 Procedure and treatment not carried out, unspecified reason (principal); J44.9 Chronic obstructive pulmonary disease, unspecified ==

== ENCOUNTER 2020-12-27 13:39 | Outpatient (CLI) | payer MEDICARE | END 2020-12-27 13:40 | disposition critical access hospital (66) | LOC: EMS 13:39 | DX: R07.89 Other chest pain (principal) | CPT/HCPCS: A0425; A0427 ==

== ENCOUNTER 2020-12-27 14:44 | Emergency (ER) | payer MEDICARE ==
[2020-12-27 15:10] LABS: BASOPHILS # (AUTO) 0.1 10^3/uL (0.0-0.1); BASOPHILS % (AUTO) 0.8 %; EOSINOPHILS # (AUTO) 0.2 10^3/uL (0.0-0.7); EOSINOPHILS % (AUTO) 2.1 %; HCT - HEMATOCRIT 37.6 % (42.0-52.0); HGB - HEMOGLOBIN 11.6 g/dL (14.0-18.0); LYMPHOCYTES # (AUTO) 2.9 10^3/uL (1.5-3.5); LYMPHOCYTES % (AUTO) 36.1 %; MEAN CORPUSCULAR HEMOGLOBIN 24.6 pg (27.0-31.0); MEAN CORPUSCULAR HGB CONC 30.9 g/dL (32.0-36.0); MEAN CORPUSCULAR VOLUME 79.7 fL (80.0-94.0); MEAN PLATELET VOLUME 8.7 fL (7.4-11.4); MONOCYTES # (AUTO) 0.8 10^3/uL (0.0-1.0); MONOCYTES % (AUTO) 10.5 %; NEUTROPHILS % (AUTO) 50.4 %; PLT - PLATELET COUNT 291 10^3/uL (130-450); RED BLOOD COUNT 4.72 10^6/uL (4.70-6.10); RED CELL DISTRIBUTION WIDTH 18.3 % (12.0-15.0); WHITE BLOOD COUNT 7.9 x10^3/uL (4.8-10.8)
--- NOTE | 2020-12-27 15:11 | XRAY Report ---
PROCEDURE: Chest 1 View X-Ray INDICATIONS: Chest Pain TECHNIQUE: One view of the chest was acquired. COMPARISON: November 21, 2019 FINDINGS: SUPPORT DEVICES: None. LUNG/PLEURA: No focal consolidation or pulmonary edema. No pleural effusion or space-occupying pneumo thorax. MEDIASTINUM: The cardiomediastinal silhouette is within normal limits. BONES/SOFT TISSUES: No acute abnormality. IMPRESSION: 1.No acute cardiopulmonary abnormality. Reviewed by: Ishaan Weinberg MD on 12/27/2020 3:09 PM PDT Approved by: Ishaan Weinberg MD on 12/27/2020 3:09 PM PDT Station ID: [id number]
--- NOTE | 2020-12-27 15:13 | ED Physician Documentation ---
History of Present Illness - Stated complaint Stated Complaint: CHEST PX/DUE TO FALL - Chief complaint Chief Complaint: Cardiac - History obtained from History obtained from: Patient, EMS - History of Present Illness Timing: Today Pain level max: 5 Pain level now: 5 - Additonal information Additional information: 65-year-old male presents to the emergency department with chest pain after a fall last night. He was apparently intoxicated last night per his son, tripped fell and hit his chest on a dresser. Patient states he does not recall falling. He states the pain is in the left lower part of the chest. Described as sharp. Worse with movement, better with rest. Does have a history of 5 cardiac stents in the past. No dyspnea. No nausea or vomiting. No diaphoresis. He states he drank a beer this morning to help with the chest pain. He states it did not help. Has not taken anything else for the pain. He states he is on "a list of medications". He does not know what his medicines are. Review of Systems Ten Systems: 10 systems reviewed and negative Constitutional: denies: Fever, Chills Respiratory: denies: Cough GI: denies: Nausea, Vomiting, Diarrhea Skin: denies: Rash Neurologic: denies: Headache PD PAST MEDICAL HISTORY - Past Medical History Past Medical History: Yes Cardiovascular: Hypertension, Coronary artery disease Neuro: None HEENT: None - Past Surgical History Past Surgical History: No - Present Medications Home Medications: Ambulatory Orders Medication Instructions Recorded Confirmed Acamprosate Calcium 333 mg PO DAILY 12/27/20 12/27/20 Albuterol Sulfate [Proair Hfa 1 puffs INH Q4HR 12/27/20 12/27/20 Inhaler] Atorvastatin Calcium [Lipitor] 80 mg PO DAILY 12/27/20 12/27/20 Clopidogrel [Plavix] 75 mg PO DAILY 12/27/20 12/27/20 Metoprolol Succinate [Toprol Xl] 50 mg PO DAILY 12/27/20 12/27/20 Nitroglycerin [Nitrostat] 1 tab SL Q5MIN PRN 12/27/20 12/27/20 amLODIPine [Norvasc] 10 mg PO DAILY 12/27/20 12/27/20 hydroCHLOROthiazide [Hydrodiuril] 25 mg PO DAILY 12/27/20 12/27/20 lisinopriL [Zestril] 5 mg PO DAILY 12/27/20 12/27/20 - Allergies Allergies/Adverse Reactions: Allergies Allergy/AdvReac Type Severity Reaction Status Date / Time codeine Allergy Itching Verified 12/27/20 14:56 - Social History Does the pt smoke?: Yes Smoking Status: Current every day smoker Does the pt drink ETOH?: Yes ETOH Use: Beer Does the pt have substance abuse?: No - Immunizations Immunizations: TDAP >10years/unknown PD ED PE NORMAL - Vitals Vital signs reviewed: Yes - General General: Alert and oriented X 3, No acute distress - HEENT HEENT: Moist mucous membranes - Neck Neck: Supple, no meningeal sign - Cardiac Cardiac: RRR - Respiratory Respiratory: No respiratory distress, Clear bilaterally, Other (TTP left chest wall, lower ribs. no crepitus, no ecchymosis. ) - Abdomen Abdomen: Soft, Non tender, Non distended - Derm Derm: Warm and dry - Extremities Extremities: No edema, No calf tenderness / cord - Neuro Neuro: Alert and oriented X 3 - Psych Psych: Normal mood, Normal affect Results - Vitals Vitals: Vital Signs - 24 hr 12/27/20 12/27/20 14:50 16:51 Temperature 36.5 C Heart Rate 75 85 Respiratory 18 15 Rate Blood Pressure 105/78 125/70 O2 Saturation 95 98 Oxygen O2 Source Room air - EKG (time done) 1445 Rate: Rate (enter#) (72) Rhythm: NSR [place]: Normal Intervals: Normal [place] QRS: Normal Ischemia: Normal ST segments - Labs Labs: Laboratory Tests 12/27/20 12/27/20 12/27/20 15:05 15:05 15:05 WBC 7.9 RBC 4.72 Hgb 11.6 L Hct 37.6 L MCV 79.7 L MCH 24.6 L MCHC 30.9 L RDW 18.3 H Plt Count 291 MPV 8.7 Neut # (Auto) 4.0 Lymph # (Auto) 2.9 [place] # (Auto) 0.8 Eos # (Auto) 0.2 Baso # (Auto) 0.1 Absolute Nucleated RBC 0.00 Nucleated RBC % 0.0 Sodium 136 Potassium 4.1 Chloride 100 L Carbon Dioxide 23 Anion Gap 13.0 BUN 38 H Creatinine 1.8 H Estimated GFR (MDRD) 38 L Glucose 84 Calcium 8.6 Total Bilirubin 0.4 AST 135 H ALT 84 H Alkaline Phosphatase 40 L Troponin I High Sens 8.7 Total Protein 7.6 Albumin 3.5 Globulin 4.1 Albumin/Globulin Ratio 0.9 L Lipase 73 H Ethyl Alcohol 12/27/20 15:05 WBC RBC Hgb Hct MCV MCH MCHC RDW Plt Count MPV Neut # (Auto) Lymph # (Auto) [place] # (Auto) Eos # (Auto) Baso # (Auto) Absolute Nucleated RBC Nucleated RBC % Sodium Potassium Chloride Carbon Dioxide Anion Gap BUN Creatinine Estimated GFR (MDRD) Glucose Calcium Total Bilirubin AST ALT Alkaline Phosphatase Troponin I High Sens Total Protein Albumin Globulin Albumin/Globulin Ratio Lipase Ethyl Alcohol 178.6 - Rads (name of study) cxr Radiology: Final report received, EMP read contemporaneously, See rad report (1.No acute cardiopulmonary abnormality. ) L ribs w/ cxr Radiology: Final report received, EMP read contemporaneously, See rad report PD MEDICAL DECISION MAKING - ED course Complexity details: reviewed old records, reviewed results, re-evaluated patient, considered differential, d/w patient ED course: Patient with chest pain after a fall last night. Possible nondisplaced fractures of the left seventh and 10th ribs. Possible displaced fracture of the left lateral sixth rib. Patient is tender along the outside of his chest. Patient declines pain medication for here or for home. Patient is well- appearing, nontoxic. No hypoxia or respiratory distress. Negative troponin. No evidence of acute coronary syndrome at this time. Patient counseled regarding signs and symptoms for which I believe and urgent re-evaluation would be necessary. Patient with good understanding of and agreement to plan and is comfortable going home at this time This document was made in part using voice recognition software. While efforts are made to proofread this document, sound alike and grammatical errors may occur. IMPRESSION: 1.Suspected minimally displaced fracture of the lateral left 6th rib. Recommend correlation for point tenderness. 2.Questionable nondisplaced fractures of the left 7th and 10th ribs. 3.No pneumothorax or pleural effusion. Patient with chest pain after a fall last night. Possible nondisplaced fractures of the left seventh and 10th ribs. Possible displaced fracture of the left lateral sixth rib. Patient is tender along the outside of his chest. Patient declines pain medication for here or for home. Patient is well-appearing, nontoxic. No hypoxia or respiratory distress. Negative troponin. No evidence of acute coronary syndrome at this time. Patient counseled regarding signs and symptoms for which I believe and urgent re-evaluation would be necessary. Patient with good understanding of and agreement to plan and is comfortable going home at this time This document was made in part using voice recognition software. While efforts are made to proofread this document, sound alike and grammatical errors may occur. Departure - Departure Disposition: 01 Home, Self Care Clinical Impression: Contusion of rib on left side Qualifiers: Encounter type: initial encounter Qualified Code(s): S20.212A - Contusion of left front wall of thorax, initial encounter Alcohol intoxication Qualifiers: Complication of substance-induced condition: uncomplicated Qualified Code(s): F10.920 - Alcohol use, unspecified with intoxication, uncomplicated Condition: Good Instructions: ED Contusion Vs Minor Fx Rib Follow-Up: Chato Turner MD [Primary Care Provider] - Within 1 week Comments: It is possible that you have nondisplaced rib fractures on your x-ray. There is no evidence of a heart attack tonight. You can use motrin or tylenol for pain. Return if you worsen. Discharge Date/Time: 12/27/20 16:53
[2020-12-27 15:42] LABS: ALBUMIN 3.5 g/dL (3.2-5.5); ALBUMIN/GLOBULIN RATIO 0.9 (1.0-2.2); BILIRUBIN,TOTAL 0.4 mg/dL (0.2-1.0); CALCIUM 8.6 mg/dL (8.5-10.3); CREATININE 1.8 mg/dL (0.6-1.2); POTASSIUM 4.1 mmol/L (3.5-5.0); TOTAL PROTEIN 7.6 g/dL (6.7-8.2)
--- NOTE | 2020-12-27 16:29 | XRAY Report ---
PROCEDURE: Ribs w/PA Chest LT INDICATIONS: fall, rib pain TECHNIQUE: 3 views of the left ribs were acquired, along with a single view chest. COMPARISON: Chest radiograph 12/27/2020 and 11/21/2019 FINDINGS: Surgical changes and devices: None. Bones and chest wall: Suspected minimally displaced fracture of the lateral left sixth rib. Mild abel ical irregularity is also seen at the lateral seventh rib and the posterolateral 10th rib. No suspici ous bony lesions. Overlying soft tissues appear unremarkable. Lungs and pleura: No pleural effusions or pneumothorax. Lungs appear clear. Mediastinum: Mediastinal contours appear normal. Heart size is normal. IMPRESSION: 1.Suspected minimally displaced fracture of the lateral left 6th rib. Recommend correlation for point tenderness. 2.Questionable nondisplaced fractures of the left 7th and 10th ribs. 3.No pneumothorax or pleural effusion. Reviewed by: El Zayas MD on 12/27/2020 4:28 PM PDT Approved by: El Zayas MD on 12/27/2020 4:28 PM PDT Station ID: [id number]
[2020-12-27 16:51] VITALS: BP 125/70
== END 2020-12-27 16:53 | disposition home or self-care (01) ==
LOC: EDUNIT# → SUPCPDRO 14:44 → ED 14:44
DX: S20.212A Contusion of left front wall of thorax, initial encounter (principal); W01.190A Fall on same level from slipping, tripping and stumbling with subsequent striking against furniture, initial encounter; F10.920 Alcohol use, unspecified with intoxication, uncomplicated; R93.7 Abnormal findings on diagnostic imaging of other parts of musculoskeletal system; I25.10 Atherosclerotic heart disease of native coronary artery without angina pectoris; Z95.5 Presence of coronary angioplasty implant and graft; I10 Essential (primary) hypertension; F17.200 Nicotine dependence, unspecified, uncomplicated; Z79.02 Long term (current) use of antithrombotics/antiplatelets
CPT/HCPCS: 36415; 71045; 71101; 80053; 83690; 84484; 85025; 93005; 99284; G0480; 80320

== ENCOUNTER 2021-03-06 20:33 | Emergency (ER) | payer MEDICARE ==
[2021-03-06 21:02] LABS: BASOPHILS # (AUTO) 0.1 10^3/uL (0.0-0.1); BASOPHILS % (AUTO) 0.9 %; EOSINOPHILS # (AUTO) 0.1 10^3/uL (0.0-0.7); EOSINOPHILS % (AUTO) 1.5 %; HCT - HEMATOCRIT 38.8 % (42.0-52.0); HGB - HEMOGLOBIN 12.5 g/dL (14.0-18.0); LYMPHOCYTES # (AUTO) 2.9 10^3/uL (1.5-3.5); LYMPHOCYTES % (AUTO) 32.3 %; MEAN CORPUSCULAR HEMOGLOBIN 26.6 pg (27.0-31.0); MEAN CORPUSCULAR HGB CONC 32.2 g/dL (32.0-36.0); MEAN CORPUSCULAR VOLUME 82.6 fL (80.0-94.0); MEAN PLATELET VOLUME 9.2 fL (7.4-11.4); MONOCYTES # (AUTO) 0.6 10^3/uL (0.0-1.0); MONOCYTES % (AUTO) 6.7 %; NEUTROPHILS # (AUTO) 5.3 10^3/uL (1.5-6.6); NEUTROPHILS % (AUTO) 58.4 %; PLT - PLATELET COUNT 302 10^3/uL (130-450); RED CELL DISTRIBUTION WIDTH 17.2 % (12.0-15.0); WHITE BLOOD COUNT 9.1 x10^3/uL (4.8-10.8)
[2021-03-06 21:09] LABS: INR 0.9 (0.8-1.2); PT - PROTHROMBIN TIME 9.7 secs (9.9-12.6)
[2021-03-06 21:11] LABS: CALCIUM 8.8 mg/dL (8.5-10.3); CREATININE 2.2 mg/dL (0.6-1.2); POTASSIUM 4.2 mmol/L (3.5-5.0)
--- NOTE | 2021-03-06 21:14 | ED Physician Documentation ---
PD HPI MAJOR TRAUMA - Stated complaint Stated Complaint: FACE LAC/INJ - Chief complaint Chief Complaint: Trauma Hd/Nk - History obtained from History obtained from: Patient - Additional information Additional information: 66-year-old gentleman with history of tobacco and alcohol use and coronary disease fell tripping while walking about 4 to 5 hours ago directly on his face and has pain over the nose and a nosebleed. No other injuries. He is on Plavix and as such was called a modified trauma on arrival although he came in private vehicle. He denies EtOH use today. Review of Systems Constitutional: denies: Fever, Chills Nose: reports: Rhinorrhea / runny nose, Congestion, Epistaxis Throat: denies: Sore throat Cardiac: denies: Chest pain / pressure, Palpitations Respiratory: denies: Dyspnea, Cough PD PAST MEDICAL HISTORY - Past Medical History Cardiovascular: Hypertension, Coronary artery disease Neuro: None HEENT: None - Past Surgical History Past Surgical History: No - Present Medications Home Medications: Ambulatory Orders Medication Instructions Recorded Confirmed Acamprosate Calcium 333 mg PO DAILY 12/27/20 12/27/20 Albuterol Sulfate [Proair Hfa 1 puffs INH Q4HR 12/27/20 12/27/20 Inhaler] Atorvastatin Calcium [Lipitor] 80 mg PO DAILY 12/27/20 12/27/20 Clopidogrel [Plavix] 75 mg PO DAILY 12/27/20 12/27/20 Metoprolol Succinate [Toprol Xl] 50 mg PO DAILY 12/27/20 12/27/20 Nitroglycerin [Nitrostat] 1 tab SL Q5MIN PRN 12/27/20 12/27/20 amLODIPine [Norvasc] 10 mg PO DAILY 12/27/20 12/27/20 hydroCHLOROthiazide [Hydrodiuril] 25 mg PO DAILY 12/27/20 12/27/20 lisinopriL [Zestril] 5 mg PO DAILY 12/27/20 12/27/20 - Allergies Allergies/Adverse Reactions: Allergies Allergy/AdvReac Type Severity Reaction Status Date / Time codeine Allergy Itching Verified 12/27/20 14:56 - Social History Does the pt smoke?: Yes Smoking Status: Current every day smoker Does the pt drink ETOH?: Yes Does the pt have substance abuse?: No - Immunizations Immunizations: TDAP >10years/unknown PD ED PE NORMAL - Vitals Vital signs reviewed: Yes - General General: Alert and oriented X 3, No acute distress, Other (Smells mildly of alcohol) - HEENT HEENT: PERRL, EOMI, Other (Quite tender over the bridge of the nose with an oozing nosebleed on the right) - Neck Neck: No bony TTP - Cardiac Cardiac: RRR, No murmur - Respiratory Respiratory: No respiratory distress, Clear bilaterally - Abdomen Abdomen: Normal bowel sounds, Soft, Non tender - Back Back: No CVA TTP, No spinal TTP - Derm Derm: Normal color, Warm and dry - Extremities Extremities: No edema, No calf tenderness / cord - Neuro Neuro: Alert and oriented X 3, No motor deficit, No sensory deficit, Normal speech Eye Opening: Spontaneous Motor: Obeys Commands Verbal: Oriented GCS Score: 15 - Psych Psych: Normal mood, Normal affect Results - Vitals Vitals: Vital Signs - 24 hr 03/06/21 03/06/21 03/06/21 20:40 21:36 21:59 Temperature 36.2 C L Heart Rate 97 75 82 Respiratory 23 21 18 Rate Blood Pressure 102/69 111/70 111/78 O2 Saturation 97 95 99 Oxygen O2 Source Room air - Labs Labs: Laboratory Tests 03/06/21 03/06/21 03/06/21 20:13 20:13 20:13 WBC 9.1 RBC 4.70 Hgb 12.5 L Hct 38.8 L MCV 82.6 MCH 26.6 L MCHC 32.2 RDW 17.2 H Plt Count 302 MPV 9.2 Neut # (Auto) 5.3 Lymph # (Auto) 2.9 [place] # (Auto) 0.6 Eos # (Auto) 0.1 Baso # (Auto) 0.1 Absolute Nucleated RBC 0.00 Nucleated RBC % 0.0 PT 9.7 L INR 0.9 Sodium 136 Potassium 4.2 Chloride 103 Carbon Dioxide 22 Anion Gap 11.0 BUN 34 H Creatinine 2.2 H Estimated GFR (MDRD) 30 L Glucose 97 Calcium 8.8 Ethyl Alcohol 200.0 Procedures - Laceration (location) nasal bridge Length in cm: 2 Wound type: Curved, Flap, Superficial Wound preparation: Irrigated copiously NS Skin layer closure: Dermabond Other: Tetanus UTD PD MEDICAL DECISION MAKING - ED course ED course: No evidence of cervical spine injury, technically fails Nexus because of potential intoxication but refused a c-collar. 66-year-old gentleman with history of coronary disease on Plavix presents after a ground-level fall 4 hours later with persistent nosebleed and facial pain. He was brought in as a modified trauma. CT imaging of the head, face, and cervical spine demonstrates that he has bilateral nasal bone fractures, a lot of degenerative change in the spine but no clear evidence of trauma. We discussed his alcohol level, he does not think he is an alcoholic but I advised him to cut back a bit, especially because he is not drinking enough water and now his creatinine is starting to rise. Departure - Departure Disposition: 01 Home, Self Care Clinical Impression: Alcohol intoxication Qualifiers: Complication of substance-induced condition: uncomplicated Qualified Code(s): F10.920 - Alcohol use, unspecified with intoxication, uncomplicated Nasal fracture Qualifiers: Encounter type: initial encounter Fracture type: closed Qualified Code(s): S02.2XXA - Fracture of nasal bones, initial encounter for closed fracture Injury of head and neck Qualifiers: Encounter type: initial encounter Qualified Code(s): S09.90XA - Unspecified injury of head, initial encounter Condition: Good Record reviewed to determine appropriate education?: Yes Instructions: ED Alcohol Intoxication, ED Fx Nasal Conf W X Ray, ED Laceration Face Skin Glue Ch Follow-Up: HUNTER EVANS [Physician No Access] - Comments: You were seen today for a fall probably related to alcohol intoxication, I do think that the fact that we have seen you several times for alcohol-related injuries is concerning for alcohol abuse and you need to cut back on alcohol especially since there is evidence that your kidneys are starting to go downhill and function and this may be contributing. It would be great if you could quit smoking 2. For the nasal fracture, you should follow-up with the facial surgeon listed on this form, call his office tomorrow for an appointment. Return for new or worsening symptoms. You can ice the site for the pain. Discharge Date/Time: 03/06/21 22:00
[2021-03-06] MEDS ORDERED: OXYMETAZOLINE HCL 100 SPRAYS BOTTLE NAS STA (21:15)
--- NOTE | 2021-03-06 21:32 | CT Report ---
PROCEDURE: HEAD WO INDICATIONS: facial/head injury TECHNIQUE: Noncontrast 4.5 mm thick angled axial sections acquired from the foramen magnum to the vertex. For r adiation dose reduction, the following was used: automated exposure control, adjustment of mA and/or kV according to patient size. COMPARISON: None. FINDINGS: Image quality: Excellent. CSF spaces: Basal cisterns are patent. No extra-axial fluid collections. Ventricles are normal in size and shape. Brain: No midline shift. No intracranial masses or hemorrhage. Cochran-white matter interface is norm al. Skull and face: Calvarium and visualized facial bones are intact, without suspicious lesions. Sinuses: Visualized sinuses and mastoids are clear. IMPRESSION: No acute intracranial finding. Age-related global cerebral volume loss and chronic micro vascular ischemic changes. Reviewed by: Shankar Gilbert MD on 03/06/2021 9:31 PM PST Approved by: Shankar Gilbert MD on 03/06/2021 9:31 PM [facility] Station ID: [id number]
--- NOTE | 2021-03-06 21:35 | CT Report ---
PROCEDURE: CERVICAL SPINE WO INDICATIONS: Facial and head injury TECHNIQUE: Noncontrast 3 mm thick sections acquired from the skull base to the T4 level. Sagittal and coronal r eformats were then constructed. For radiation dose reduction, the following was used: automated exp osure control, adjustment of mA and/or kV according to patient size. COMPARISON: None. FINDINGS: Anterolisthesis of C3 on C4 measuring 3 mm. Anterolisthesis of C7 on T1 measuring 4 mm. These are bot h presumably degenerative as there are [id number] degenerative changes at both levels with no significant subluxation or dislocation of the facets. There is no unexpected asymmetric widening of the facets at the remaining levels. Some asymmetry is seen, attributable to changes. 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 There is no evidence of fracture. P revertebral and paraspinous soft tissues are within normal limits. IMPRESSION: No CT evidence of acute or metastatic cervical spine injury. Some asymmetry of the facet joints seen at a few levels is attributed to degenerative changes althoug h correlation with the patient's symptoms and mechanism of injury is requested to exclude the unlikel y potential of ligamentous injury. Reviewed by: Shankar Gilbert MD on 03/06/2021 9:33 PM PST Approved by: Shankar Gilbert MD on 03/06/2021 9:33 PM PST Station ID: [id number]
--- NOTE | 2021-03-06 21:36 | CT Report ---
PROCEDURE: MAXILLOFACIAL WO INDICATIONS: Facial and head injury TECHNIQUE: Noncontrast 1.5 mm thick axial images acquired from the mandible through the frontal sinuses, with co maia and sagittal reformatting. For radiation dose reduction, the following was used: automated ex posure control, adjustment of mA and/or kV according to patient size. COMPARISON: None. FINDINGS: Image quality: Excellent. Bones and teeth: Orbital miller are intact. Sinus miller show no fracture or deformity. Comminuted an d mildly displaced bilateral nasal bone fractures. The septum appears intact. The mandible and maxill a appear intact. Zygomatic arches are intact. Pterygoid plates are intact. Visualized portions of t he skull base and auditory canals are intact. Sinuses: Paranasal sinuses are aerated, without fluid levels, mucosal thickening, or mucoceles. Mas toid air cells are aerated. Soft tissues: No edema, masses, or fluid collections. No enlarged lymph nodes. No soft tissue lace rations or debris. Vascular: Visualized vascular structures appear normal in the absence of contrast. Bony vascular fo ramina and canals are intact. IMPRESSION: Comminuted and mildly displaced bilateral nasal bone fractures. Reviewed by: Shankar Gilbert MD on 03/06/2021 9:35 PM PST Approved by: Shankar Gilbert MD on 03/06/2021 9:35 PM PST Station ID: [id number]
[2021-03-06 22:00] VITALS: BP 111/78
== END 2021-03-06 22:00 | disposition home or self-care (01) ==
LOC: ED 20:33
DX: S01.21XA Laceration without foreign body of nose, initial encounter (principal); W01.0XXA Fall on same level from slipping, tripping and stumbling without subsequent striking against object, initial encounter; Y93.01 Activity, walking, marching and hiking; S02.2XXA Fracture of nasal bones, initial encounter for closed fracture; S09.90XA Unspecified injury of head, initial encounter; F10.129 Alcohol abuse with intoxication, unspecified; Y90.7 Blood alcohol level of 200-239 mg/100 ml; F17.200 Nicotine dependence, unspecified, uncomplicated
CPT/HCPCS: 12011; 36415; 70450; 70486; 72125; 80048; 85025; 85610; 99283; 99284; A9270; G0480; 80320

== ENCOUNTER 2023-08-02 07:56 | Outpatient (CLI) | payer MEDICARE ==
[2023-08-02 12:01] LABS: BASOPHILS % (AUTO) 0.7 %; EOSINOPHILS # (AUTO) 0.1 10^3/uL (0.0-0.7); EOSINOPHILS % (AUTO) 1.9 %; HCT - HEMATOCRIT 47.2 % (42.0-52.0); HGB - HEMOGLOBIN 14.9 g/dL (14.0-18.0); LYMPHOCYTES # (AUTO) 1.9 10^3/uL (1.5-3.5); LYMPHOCYTES % (AUTO) 32.6 %; MEAN CORPUSCULAR HEMOGLOBIN 31.4 pg (27.0-31.0); MEAN CORPUSCULAR HGB CONC 31.6 g/dL (32.0-36.0); MEAN CORPUSCULAR VOLUME 99.4 fL (80.0-94.0); MEAN PLATELET VOLUME 9.7 fL (7.4-11.4); MONOCYTES # (AUTO) 0.7 10^3/uL (0.0-1.0); NEUTROPHILS # (AUTO) 3.1 10^3/uL (1.5-6.6); NEUTROPHILS % (AUTO) 52.3 %; PLT - PLATELET COUNT 273 10^3/uL (130-450); RED BLOOD COUNT 4.75 10^6/uL (4.70-6.10); RED CELL DISTRIBUTION WIDTH 14.6 % (12.0-15.0); WHITE BLOOD COUNT 5.9 x10^3/uL (4.8-10.8)
[2023-08-02 12:18] LABS: ALBUMIN 3.8 g/dL (3.2-5.5); ALKALINE PHOSPHATASE 55 IU/L (42-121); ALT ALANINE AMINOTRANSFERASE 45 IU/L (10-60); AST ASPARTATE AMINOTRANSFERASE 70 IU/L (10-42); BILIRUBIN,TOTAL 0.5 mg/dL (0.2-1.0); BUN - BLOOD UREA NITROGEN 19 mg/dL (6-20); CARBON DIOXIDE - CO2 31 mmol/L (21-32); CHLORIDE 102 mmol/L (101-111); CHOL/HDL RATIO 2.6 (<5.0); CHOLESTEROL 173 mg/dL; CREATININE 1.5 mg/dL (0.6-1.3); GFR - MDRD 47 (>89); GLUCOSE 102 mg/dL (74-104); HDL CHOLESTEROL 66 mg/dL; LDL CHOLESTEROL,CALCULATED 83 mg/dL; LDL/HDL RATIO 1.3 (<3.6); POTASSIUM 4.4 mmol/L (3.5-4.5); SODIUM 135 mmol/L (135-145); TOTAL PROTEIN 7.8 g/dL (6.4-8.9); TRIGLYCERIDES 118 mg/dL (48-352); VLDL CHOLESTEROL 24 mg/dL
[2023-08-02 12:31] LABS: THYROID STIMULATING HORMONE 1.27 uIU/mL (0.34-5.60)
[2023-08-02 13:30] LABS: ESTIMATED AVERAGE GLUCOSE 100 mg/dL (70-100); HEMOGLOBIN A1c% 5.1 % (4.27-6.07)
== END 2023-08-02 07:57 | disposition home or self-care (01) ==
LOC: LAB.N 07:56
DX: R06.09 Other forms of dyspnea (principal); Z12.5 Encounter for screening for malignant neoplasm of prostate
CPT/HCPCS: 36415; 80053; 80061; 83036; 83880; 84443; 85025; G0103; 83721; 84153

== ENCOUNTER 2023-08-11 10:17 | Outpatient (CLI) | payer MEDICARE ==
--- NOTE | 2023-08-11 11:00 | XRAY Report ---
PROCEDURE: Chest 2V INDICATIONS: SHORTNESS OF BREATH ON EXERTION TECHNIQUE: 2 views of the chest were acquired. COMPARISON: 12/27/2020 FINDINGS: Surgical changes and devices: None. Lungs and pleura: No pleural effusions or pneumothorax. Lungs are clear. Mediastinum: Mediastinal contours appear normal. Heart size is normal. Bones and chest wall: No suspicious bony lesions. Overlying soft tissues appear unremarkable. IMPRESSION: No acute cardiopulmonary process. Reviewed by: Smith Orta MD on 08/11/2023 10:59 AM PDT Approved by: Smith Orta MD on 08/11/2023 10:59 AM PDT Station ID: [id number]
== END 2023-08-11 10:18 | disposition home or self-care (01) ==
LOC: DI 10:17
DX: R06.09 Other forms of dyspnea (principal)